=== PATIENT | male | born 1995 | race Caucasian/White ===

== ENCOUNTER 2018-11-18 21:02 | Emergency (ER) | payer MEDICAID, OTHER ==
[~2018-11-18] VITALS: Ht 177.8 cm; Wt 72.0 kg
[~2018-11-18 21:02] MED LIST: PRAZ1CAP5 PO; RISP0.5T3 PO; RISP1TAB3 PO
[2018-11-18 22:06] VITALS: BP 132/64
== END 2018-11-18 22:10 | disposition home or self-care (01) ==
LOC: ER 21:02
DX: F41.9 Anxiety disorder, unspecified (principal); Z79.899 Other long term (current) drug therapy; F17.200 Nicotine dependence, unspecified, uncomplicated
CPT/HCPCS: 99284